=== PATIENT | male | born 1970 | race Caucasian/White ===

== ENCOUNTER 2024-04-29 06:17 | Outpatient (CLI) | payer BC, SELFPAY ==
--- NOTE | 2024-04-29 08:02 | W.ANESCHARGE ---
Anesthesia Charges Start Date/Time Anesthesia Start Date: 04/29/24 Anesthesia Start Time: 07:40 Stop Date/Time Anesthesia Stop Date: 04/29/24 Anesthesia Stop Time: 08:00
--- NOTE | 2024-04-29 08:02 | W.ANESCHARGE ---
Anesthesia Charges Start Date/Time Anesthesia Start Date: 04/29/24 Anesthesia Start Time: 07:40 Stop Date/Time Anesthesia Stop Date: 04/29/24 Anesthesia Stop Time: 08:00
== END 2024-04-29 06:18 | disposition home or self-care (01) ==
PROVIDERS: PCP Family Medicine; Visit Provider Surgery
DX: Z12.11 Encounter for screening for malignant neoplasm of colon (principal); K64.8 Other hemorrhoids; Z86.0100 Personal history of colon polyps, unspecified
CPT/HCPCS: 00812; 45378; J2704